=== PATIENT | male | born 1980 | race Caucasian/White ===

== ENCOUNTER 2022-10-07 02:30 | Emergency (ER) | payer OTHER, SELFPAY ==
--- NOTE | 2022-10-07 | ECG_ITS ---
Test Reason : med clearance Blood Pressure : / mmHG Vent. Rate : 070 BPM Atrial Rate : 070 BPM P-R Int : 164 ms QRS Dur : 084 ms QT Int : 388 ms P-R-T Axes : 058 041 001 degrees QTc Int : 419 ms Normal sinus rhythm Normal ECG No previous ECGs available Referred By: Chao Silva Electronically Signed By:YUMIKO MELGAR
[2022-10-07 02:41] VITALS: BP 123/73; PULSE 105; RESP 23; TEMP 36.2; O2SAT 98; BMI 28.3
[2022-10-07 03:00] VITALS: BP 123/93; PULSE 105; RESP 22; TEMP 36.2; O2SAT 98
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
[2022-10-07] MEDS: OLANZapine 5 MG TABLET PO (03:34)
[2022-10-07 03:49] LABS: Basophils Percent Auto 0.5 % (0-2); Eosinophils Absolute Auto 0.4 X10*3/uL (0.0-0.4); Eosinophils Percent Auto 6.8 % (0-4); Hemoglobin 14.8 g/dl (14.0-18.0); Imm Gran Abs Auto 0.01 X10*3/uL (0.00-0.03); Imm Gran Pct Auto 0.2 % (0.0-0.4); Lymphocytes Absolute Auto 2.2 X10*3/uL (1.2-4.9); Lymphocytes Percent Auto 37.9 % (20-40); MANUAL DIFF FLAG NO; Mean Corpuscular HGB Conc 35.2 g/dl (31.0-36.0); Mean Corpuscular Hemoglobin 30.1 pg (27.0-33.0); Mean Corpuscular Volume 85.4 fL (80.0-98.0); Mean Platelet Volume 9.5 fL (9.4-12.4); Monocytes Absolute Auto 0.3 X10*3/uL (0.1-1.2); Monocytes Percent Auto 5.3 % (2-11); Neutrophils Absolute Auto 2.8 x10*3/uL (2.0-8.3); Neutrophils Percent Auto 49.3 % (45-73); Platelet Count 241 X10*3/uL (160-400); Red Blood Count 4.92 X10*6/uL (4.60-5.80); Red Cell Distribution Width 14.1 % (11.0-16.0); White Blood Count 5.7 X10*3/uL (4.8-10.8)
[2022-10-07 04:05] LABS: Amphetamine Screen Urine Not Detected (Not Detect); Barbiturates, Urine Not Detected (Not Detect); Benzodiazepines Screen Urine Not Detected (Not Detect); Cannabinoid Screen Urine Not Detected (Not Detect); Cocaine Screen Urine Not Detected (Not Detect); Fentanyl, urine Not Detected (Not Detect); Opiate Screen Urine Not Detected (Not Detect); Phencyclidine Screen Urine Not Detected (Not Detect)
[2022-10-07 04:08] LABS: Ethanol 311 mg/dL
[2022-10-07 04:11] LABS: Alanine Aminotransferase 33 U/L (0-40); Albumin Level 4.5 g/dL (3.5-5.0); Alkaline Phosphatase 80 U/L (39-117); Anion Gap 17 (12-20); Aspartate Amino Transferase 27 U/L (5-37); Bilirubin Total 0.4 mg/dL (0.0-1.0); Blood Urea Nitrogen 13 mg/dL (9-16); Carbon Dioxide 22 mmol/L (22-29); Chloride 109 mmol/L (96-108); Creatinine Clr Calc Pharmacy 105.8; Estimated Glomerular Filt Rate > 60; Glucose Random 120 mg/dL (60-115); Potassium 4.1 mmol/L (3.3-5.1); Sodium 144 mmol/L (135-145); Total Protein 7.8 g/dL (6.5-8.0)
[2022-10-07 04:26] LABS: Influenza A PCR NEGATIVE (Negative); Influenza B PCR NEGATIVE (Negative); Resp Syncy Virus RNA Qual PCR NEGATIVE (Negative); SARS COV2 PCR INHOUSE NEGATIVE (Negative)
--- NOTE | 2022-10-07 07:16 | PC.NURSE ---
assumed care of patient, pt resting comfortably in bed, sec [address], awaiting eval this AM
[2022-10-07 07:47] VITALS: BP 109/50; PULSE 83; RESP 14; TEMP 36.6; O2SAT 95
--- NOTE | 2022-10-07 12:46 | PC.NURSE ---
attempted to call [facility] pharmacy for medication reconciliation, no answer. plan to ask for fax.
--- NOTE | 2022-10-07 15:01 | MHC.CARE ---
Patient evaluated by CARE Team, disposition for inpatient psychiatric treatment, he is agreeable. [facility] [place] ED provider updated.
--- NOTE | 2022-10-07 16:38 | MHC.CARE ---
CARE Team faxed all of patient's information and evaluation to the [facility] in [place], communicating with intake MOLLY Young ([phone] [id number] is working until 6:30 today) who is presenting the case to MD for review.
[2022-10-07 16:44] VITALS: BP 116/69; PULSE 80; RESP 18; TEMP 37.1; O2SAT 97
--- NOTE | 2022-10-07 16:46 | PC.NURSE ---
Pt provided with pitcher of ice water. No tremors, diaphoresis noted. Flat affect, appears depressed. Pt denies nausea, headache, AH/VH or tactile hallucinations. NAD, VSS. In-patient bedsearch continues.
== END 2022-10-07 22:13 ==
PROVIDERS: Emergency Provider Emergency Medicine Emergency Medical Services
DX: F32.A Depression, unspecified (principal); F10.920 Alcohol use, unspecified with intoxication, uncomplicated; Y90.8 Blood alcohol level of 240 mg/100 ml or more; T14.91XA Suicide attempt, initial encounter; F43.10 Post-traumatic stress disorder, unspecified; Z79.899 Other long term (current) drug therapy; Y93.89 Activity, other specified; Y92.414 Local residential or business street as the place of occurrence of the external cause; Y99.9 Unspecified external cause status
CPT/HCPCS: 0241U; 36415; 80053; 80307; 82077; 85025; 93005; 99285; S9485